=== PATIENT | male | born 1965 | race Caucasian/White ===

== ENCOUNTER 2018-10-24 08:00 | Outpatient (CLI) | payer OTHER ==
[2018-10-24 13:53] LABS: BASOPHILS % (AUTO) 0.8 %; EOSINOPHILS # (AUTO) 0.1 10^3/uL (0.0-0.7); EOSINOPHILS % (AUTO) 1.7 %; HGB - HEMOGLOBIN 14.7 g/dL (14.0-18.0); LYMPHOCYTES # (AUTO) 1.5 10^3/uL (1.5-3.5); MEAN CORPUSCULAR HEMOGLOBIN 30.6 pg (27.0-31.0); MEAN CORPUSCULAR HGB CONC 34.1 g/dL (32.0-36.0); MEAN CORPUSCULAR VOLUME 89.8 fL (80.0-94.0); MEAN PLATELET VOLUME 7.7 fL (7.4-11.4); MONOCYTES # (AUTO) 0.4 10^3/uL (0.0-1.0); MONOCYTES % (AUTO) 7.5 %; NEUTROPHILS # (AUTO) 2.9 10^3/uL (1.5-6.6); PLT - PLATELET COUNT 269 10^3/uL (130-450); RED BLOOD COUNT 4.81 10^6/uL (4.70-6.10); RED CELL DISTRIBUTION WIDTH 12.6 % (12.0-15.0)
[2018-10-24 14:05] LABS: ALBUMIN 4.1 g/dL (3.2-5.5); ALBUMIN/GLOBULIN RATIO 1.6 (1.0-2.2); ALKALINE PHOSPHATASE 72 IU/L (42-121); ALT ALANINE AMINOTRANSFERASE 20 IU/L (10-60); AST ASPARTATE AMINOTRANSFERASE 20 IU/L (10-42); BILIRUBIN,TOTAL 0.7 mg/dL (0.2-1.0); BUN - BLOOD UREA NITROGEN 17 mg/dL (6-20); CALCIUM 9.2 mg/dL (8.5-10.3); CARBON DIOXIDE - CO2 29 mmol/L (21-32); CHLORIDE 104 mmol/L (101-111); CHOL/HDL RATIO 3.1 (<5.0); CHOLESTEROL 154 mg/dL; CREATININE 0.9 mg/dL (0.6-1.2); GFR - MDRD 88 (>89); GLUCOSE 85 mg/dL (70-100); HDL CHOLESTEROL 50 mg/dL; LDL CHOLESTEROL,CALCULATED 96 mg/dL; LDL/HDL RATIO 1.9 (<3.6); SODIUM 139 mmol/L (135-145); TOTAL PROTEIN 6.7 g/dL (6.7-8.2); VLDL CHOLESTEROL 8 mg/dL
== END 2018-10-24 23:59 | disposition home or self-care (01) ==
LOC: LAB.WCP 08:00
PROVIDERS: ATTEND Nurse Practitioner
DX: Z00.00 Encounter for general adult medical examination without abnormal findings (principal); Z13.29 Encounter for screening for other suspected endocrine disorder; E78.5 Hyperlipidemia, unspecified
CPT/HCPCS: 36415; 80053; 80061; 83721; 84443; 85025

== ENCOUNTER 2019-01-20 15:00 | Outpatient (CLI) | payer OTHER ==
--- NOTE | 2019-01-21 09:34 | Ultrasound Report ---
Reason: TESTICULAR MASS,LEFT Procedure Date: 01/20/2019 Accession Number: [id number] / [id number] Procedure: US - Testicle CPT Code: FULL RESULT: EXAM: SCROTAL ULTRASOUND EXAM DATE: 01/20/2019 03:46 PM. CLINICAL HISTORY: Testicular mass, left. COMPARISON: None. TECHNIQUE: Real-time scanning was performed with static images obtained. Color-flow images were utilized. FINDINGS: Right: Testis: 4.0 x 2.2 x 2.9 cm. Normal size and echotexture with the exception of a 1.6 mm single echogenic focus, possibly calcification along the lateral margin/surface. No mass or abnormal blood flow. Epididymis: 1.4 x 1.5 x 1.3 cm. Normal size and echotexture. No mass or abnormal blood flow. Hydrocele: None. Varicocele: Venous caliber of 2.1 mm without Valsalva and 2.3 mm with Valsalva. Left: Testis: 4.5 x 2.1 x 3.2 cm. Normal size and echotexture. No mass, calcification, or abnormal blood flow. Epididymis: 1.6 x 2.8 x 1.0 cm. Normal size and echotexture. No mass or abnormal blood flow. Hydrocele: Trace. Varicocele: Venous plexus dilates to 2.7 mm with Valsalva, 2.3 mm without. IMPRESSION: Borderline left varicocele. Trace left hydrocele. Single 1.6 mm focus of calcification along the lateral margin/surface of the right testicle, unclear significance. RADIA
== END 2019-01-20 15:01 | disposition home or self-care (01) ==
LOC: DI 15:00
PROVIDERS: ATTEND Nurse Practitioner
DX: I86.1 Scrotal varices (principal); N43.3 Hydrocele, unspecified
CPT/HCPCS: 76870

== ENCOUNTER 2019-07-31 16:27 | Outpatient (CLI) | payer OTHER ==
--- NOTE | 2019-08-04 02:24 | Ultrasound Report ---
Reason: VARICOCELE LT TESTIS, TESTICULAR MASS LT Procedure Date: 07/31/2019 Accession Number: [id number] / [id number] Procedure: US - Testicle CPT Code: Final Report FULL RESULT: EXAM: SCROTAL ULTRASOUND EXAM DATE: 07/31/2019 05:20 PM. CLINICAL HISTORY: VARICOCELE LT TESTIS, TESTICULAR MASS LT. COMPARISON: TESTICLE 01/20/2019 3:07 PM. TECHNIQUE: Real-time scanning was performed with static images obtained. Color-flow images were utilized. FINDINGS: Right: Testis: 4.2 x 2.2 x 2.7 cm. Normal size and echotexture. No mass, calcification, or abnormal blood flow. Epididymis: 1.6 x 1.2 x 1.9 cm. Normal size and echotexture. No mass or abnormal blood flow. Hydrocele: None. Varicocele: Yes. Left: Testis: 4.6 x 2.2 x 3.0 cm. Normal size and overall echotexture. Small cyst measuring 2 x 2 x 2 mm. Otherwise no mass, calcification, or abnormal blood flow. Epididymis: 2.1 x 1.3 x 1.9 cm. Normal size and echotexture. No mass or abnormal blood flow. Hydrocele: None. Varicocele: Yes. IMPRESSION: 1. Bilateral varicoceles. 2. Small cyst in the left testis. RADIA
== END 2019-07-31 16:28 | disposition home or self-care (01) ==
LOC: DI 16:27
PROVIDERS: ATTEND Nurse Practitioner
DX: I86.1 Scrotal varices (principal); N44.2 Benign cyst of testis
CPT/HCPCS: 76870

== ENCOUNTER 2020-06-21 08:06 | Outpatient (CLI) | payer BC, OTHER ==
[2020-06-21 08:41] LABS: BASOPHILS # (AUTO) 0.1 10^3/uL (0.0-0.1); EOSINOPHILS # (AUTO) 0.1 10^3/uL (0.0-0.7); EOSINOPHILS % (AUTO) 2.2 %; HGB - HEMOGLOBIN 15.4 g/dL (14.0-18.0); LYMPHOCYTES # (AUTO) 1.6 10^3/uL (1.5-3.5); LYMPHOCYTES % (AUTO) 32.4 %; MEAN CORPUSCULAR HEMOGLOBIN 30.7 pg (27.0-31.0); MEAN CORPUSCULAR VOLUME 90.2 fL (80.0-94.0); MEAN PLATELET VOLUME 8.8 fL (7.4-11.4); MONOCYTES # (AUTO) 0.5 10^3/uL (0.0-1.0); MONOCYTES % (AUTO) 9.7 %; NEUTROPHILS # (AUTO) 2.7 10^3/uL (1.5-6.6); NEUTROPHILS % (AUTO) 54.5 %; PLT - PLATELET COUNT 258 10^3/uL (130-450); RED BLOOD COUNT 5.02 10^6/uL (4.70-6.10); RED CELL DISTRIBUTION WIDTH 11.7 % (12.0-15.0)
[2020-06-21 08:55] LABS: ALBUMIN 3.9 g/dL (3.2-5.5); ALBUMIN/GLOBULIN RATIO 1.4 (1.0-2.2); ALKALINE PHOSPHATASE 79 IU/L (42-121); ALT ALANINE AMINOTRANSFERASE 28 IU/L (10-60); AST ASPARTATE AMINOTRANSFERASE 22 IU/L (10-42); BILIRUBIN,TOTAL 0.6 mg/dL (0.2-1.0); BUN - BLOOD UREA NITROGEN 15 mg/dL (6-20); CARBON DIOXIDE - CO2 25 mmol/L (21-32); CHLORIDE 102 mmol/L (101-111); CHOL/HDL RATIO 3.4 (<5.0); CHOLESTEROL 164 mg/dL; CREATININE 0.8 mg/dL (0.6-1.2); GLUCOSE 85 mg/dL (70-100); HDL CHOLESTEROL 48 mg/dL; LDL CHOLESTEROL,CALCULATED 103 mg/dL; LDL/HDL RATIO 2.1 (<3.6); SODIUM 136 mmol/L (135-145); TOTAL PROTEIN 6.7 g/dL (6.7-8.2); VLDL CHOLESTEROL 13 mg/dL
== END 2020-06-21 08:07 | disposition home or self-care (01) ==
LOC: LAB 08:06
PROVIDERS: ATTEND Nurse Practitioner
DX: I10 Essential (primary) hypertension (principal); E78.9 Disorder of lipoprotein metabolism, unspecified; Z13.29 Encounter for screening for other suspected endocrine disorder
CPT/HCPCS: 36415; 80053; 80061; 83721; 84153; 84443; 85025

== ENCOUNTER 2020-08-16 15:21 | Outpatient (CLI) | payer BC, OTHER ==
--- NOTE | 2020-08-16 16:43 | Ultrasound Report ---
PROCEDURE: Testicle INDICATIONS: LT TESTICULAR MASS TECHNIQUE: Real-time scanning was performed of the scrotum and testicles, with image documentation. Color and p ulse Doppler interrogation was performed of both testicles. COMPARISON: None. FINDINGS: Right: Testicle is normal in size at 4.5 x 2.2 x 2.8 cm, and homogenous in echotexture except for a nonspecific echogenic focus probably calcification. Epididymis is normal in overall size and morphol ogy. No hydrocele. There is a right varicocele. Overlying scrotal skin is normal in thickness. Left: Testicle is normal in size at 4.6 x 2.3 x 3.0 cm, with a small cyst or spermatocele measuring 2 x 1 x 2 mm. Nonspecific echogenic focus, possibly extra testicular calcification which measures 5 x 2 x 4 mm. Epididymis is normal in overall size and morphology. Small hydrocele. No varicocele. Overlying scrota l skin is normal in thickness. Doppler: Color and pulse Doppler demonstrate normal and symmetric arterial flow in both testicles. IMPRESSION: Small left hydrocele. Right varicocele Nonspecific small cyst versus spermatocele involving the left testicle, too small to characterize. If clinically warranted, continued ultrasound follow-up could be considered. Reviewed by: Benjamin Kay MD on 08/16/2020 4:42 PM PST Approved by: Benjamin Kay MD on 08/16/2020 4:42 PM PST Station ID: [id number]
== END 2020-08-16 15:22 | disposition home or self-care (01) ==
LOC: DI 15:21
PROVIDERS: ATTEND Nurse Practitioner
DX: N43.3 Hydrocele, unspecified (principal); N50.89 Other specified disorders of the male genital organs

== ENCOUNTER 2021-03-09 15:42 | Outpatient (CLI) | payer BC, OTHER ==
--- NOTE | 2021-03-09 16:10 | XRAY Report ---
PROCEDURE: Shoulder 3 View RT INDICATIONS: IMPINGEMENT SYNDROME OF R SHOULDER TECHNIQUE: 3 views of the shoulder were acquired. COMPARISON: None. FINDINGS: Bones: No fractures or dislocations. No suspicious bony lesions. Visualized ribs appear intact. Soft tissues: No suspicious soft tissue calcifications. IMPRESSION: Mild degenerative AC joint osteoarthritis, no trauma found. Reviewed by: Tien Armstrong MD on 03/09/2021 4:08 PM PDT Approved by: Tien Armstrong MD on 03/09/2021 4:08 PM PDT Station ID: [id number]
== END 2021-03-09 15:43 | disposition home or self-care (01) ==
LOC: DI.N 15:42
PROVIDERS: ATTEND Internal Medicine
DX: M19.011 Primary osteoarthritis, right shoulder (principal)

== ENCOUNTER 2021-07-19 08:00 | Outpatient (CLI) | payer BC, OTHER ==
[2021-07-19 12:00] LABS: BASOPHILS # (AUTO) 0.1 10^3/uL (0.0-0.1); BASOPHILS % (AUTO) 0.9 %; EOSINOPHILS # (AUTO) 0.2 10^3/uL (0.0-0.7); HCT - HEMATOCRIT 47.5 % (42.0-52.0); HGB - HEMOGLOBIN 15.6 g/dL (14.0-18.0); LYMPHOCYTES # (AUTO) 1.7 10^3/uL (1.5-3.5); MEAN CORPUSCULAR HEMOGLOBIN 29.9 pg (27.0-31.0); MEAN CORPUSCULAR HGB CONC 32.8 g/dL (32.0-36.0); MEAN PLATELET VOLUME 9.1 fL (7.4-11.4); MONOCYTES # (AUTO) 0.4 10^3/uL (0.0-1.0); MONOCYTES % (AUTO) 7.8 %; NEUTROPHILS # (AUTO) 3.2 10^3/uL (1.5-6.6); NEUTROPHILS % (AUTO) 56.9 %; PLT - PLATELET COUNT 273 10^3/uL (130-450); RED BLOOD COUNT 5.22 10^6/uL (4.70-6.10); WHITE BLOOD COUNT 5.6 x10^3/uL (4.8-10.8)
[2021-07-19 12:15] LABS: ALBUMIN 4.1 g/dL (3.2-5.5); ALBUMIN/GLOBULIN RATIO 1.4 (1.0-2.2); ALKALINE PHOSPHATASE 75 IU/L (42-121); ALT ALANINE AMINOTRANSFERASE 40 IU/L (10-60); AST ASPARTATE AMINOTRANSFERASE 28 IU/L (10-42); BILIRUBIN,TOTAL 1.2 mg/dL (0.2-1.0); BUN - BLOOD UREA NITROGEN 15 mg/dL (6-20); CALCIUM 9.4 mg/dL (8.5-10.3); CARBON DIOXIDE - CO2 30 mmol/L (21-32); CHLORIDE 102 mmol/L (101-111); CHOL/HDL RATIO 3.8 (<5.0); CHOLESTEROL 181 mg/dL; CREATININE 0.9 mg/dL (0.6-1.2); GFR - MDRD 88 (>89); GLUCOSE 85 mg/dL (70-100); HDL CHOLESTEROL 48 mg/dL; LDL CHOLESTEROL,CALCULATED 119 mg/dL; LDL/HDL RATIO 2.5 (<3.6); POTASSIUM 4.8 mmol/L (3.5-5.0); SODIUM 140 mmol/L (135-145); TRIGLYCERIDES 72 mg/dL; VLDL CHOLESTEROL 14 mg/dL
[2021-07-19 12:26] LABS: THYROID STIMULATING HORMONE 2.98 uIU/mL (0.34-5.60)
== END 2021-07-19 23:59 ==
LOC: LAB.WCP 08:00
PROVIDERS: ATTEND Internal Medicine
DX: I10 Essential (primary) hypertension (principal); E78.5 Hyperlipidemia, unspecified; Z12.5 Encounter for screening for malignant neoplasm of prostate
CPT/HCPCS: 36415; 80053; 80061; 83721; 84153; 84443; 85025

== ENCOUNTER 2021-07-26 13:27 | Outpatient (CLI) | payer BC, OTHER | END 2021-07-26 13:28 | disposition home or self-care (01) | LOC: RT 13:27 | PROVIDERS: ATTEND Internal Medicine | DX: J45.909 Unspecified asthma, uncomplicated (principal); R05.9 Cough, unspecified | CPT/HCPCS: 94010; 94729 ==

== ENCOUNTER 2021-08-06 08:23 | Outpatient (CLI) | payer BC, OTHER ==
--- NOTE | 2021-08-06 13:57 | Ultrasound Report ---
PROCEDURE: Abdomen Complete INDICATIONS: EPIGASTRIC DISCOMFORT TECHNIQUE: Real-time scanning was performed of the abdominal and retroperitoneal organs, with image documentatio n. COMPARISON: None. FINDINGS: Liver: Liver is normal in size and homogeneous in echotexture. Gallbladder: No stones. No wall thickening or pericholecystic fluid. Biliary ducts: Intrahepatic bile ducts are non-dilated. Extrahepatic bile duct caliber measures 2 m m. Normal is 6-7 mm or less in diameter, or 10 mm or less post-cholecystectomy. Pancreas: The pancreas is not well visualized due to overlying bowel gas. Spleen: Spleen is normal i n size and homogeneous in echotexture. Kidneys: Kidneys are normal in size and echotexture. Right kidney measures 11.1 cm long; left kidne y measures 12.0 cm long. No hydronephrosis or nephrolithiasis. No solid masses. The right midpole cyst measures 6.0 x 5.8 x 5.5 cm Aorta: Visualized aorta is normal in caliber at less than 3 cm. Iliacs: Proximal common iliac arteries are normal in caliber at less than 2.5 cm. IVC: Intrahepatic inferior vena cava is patent. Miscellaneous: No free abdominal fluid. IMPRESSION: 1. No gallstones. No evidence of cholecystitis. 2. Simple cyst of the right kidney. 3. No acute ultrasound abnormality of the abdomen. Reviewed by: Henry Ellis on 08/06/2021 12:[address] [facility] Approved by: Henry Ellis on 08/06/2021 12:[address] Station ID: [id number]
== END 2021-08-06 08:24 | disposition home or self-care (01) ==
LOC: DI 08:23
PROVIDERS: ATTEND Internal Medicine
DX: R10.13 Epigastric pain (principal); N28.1 Cyst of kidney, acquired

== ENCOUNTER 2022-07-03 08:45 | Outpatient (CLI) | payer BC, OTHER ==
[2022-07-03 12:23] LABS: BASOPHILS % (AUTO) 0.7 %; EOSINOPHILS # (AUTO) 0.1 10^3/uL (0.0-0.7); EOSINOPHILS % (AUTO) 1.3 %; HCT - HEMATOCRIT 47.4 % (42.0-52.0); HGB - HEMOGLOBIN 15.6 g/dL (14.0-18.0); LYMPHOCYTES # (AUTO) 1.8 10^3/uL (1.5-3.5); MEAN CORPUSCULAR HGB CONC 32.9 g/dL (32.0-36.0); MEAN CORPUSCULAR VOLUME 91.2 fL (80.0-94.0); MEAN PLATELET VOLUME 9.5 fL (7.4-11.4); MONOCYTES # (AUTO) 0.4 10^3/uL (0.0-1.0); MONOCYTES % (AUTO) 8.1 %; NEUTROPHILS # (AUTO) 3.1 10^3/uL (1.5-6.6); NEUTROPHILS % (AUTO) 56.7 %; PLT - PLATELET COUNT 288 10^3/uL (130-450); RED CELL DISTRIBUTION WIDTH 11.9 % (12.0-15.0); WHITE BLOOD COUNT 5.5 x10^3/uL (4.8-10.8)
[2022-07-03 12:51] LABS: ALBUMIN 4.3 g/dL (3.2-5.5); ALBUMIN/GLOBULIN RATIO 1.5 (1.0-2.2); ALKALINE PHOSPHATASE 86 IU/L (42-121); ALT ALANINE AMINOTRANSFERASE 30 IU/L (10-60); AST ASPARTATE AMINOTRANSFERASE 24 IU/L (10-42); BUN - BLOOD UREA NITROGEN 13 mg/dL (6-20); CALCIUM 9.3 mg/dL (8.5-10.3); CARBON DIOXIDE - CO2 31 mmol/L (21-32); CHLORIDE 103 mmol/L (101-111); CHOL/HDL RATIO 3.3 (<5.0); CHOLESTEROL 183 mg/dL; CREATININE 0.8 mg/dL (0.6-1.2); GFR - MDRD 100 (>89); GLUCOSE 85 mg/dL (70-100); HDL CHOLESTEROL 55 mg/dL; LDL CHOLESTEROL,CALCULATED 114 mg/dL; LDL/HDL RATIO 2.1 (<3.6); POTASSIUM 4.6 mmol/L (3.5-5.0); SODIUM 139 mmol/L (135-145); TOTAL PROTEIN 7.2 g/dL (6.7-8.2); TRIGLYCERIDES 70 mg/dL; VLDL CHOLESTEROL 14 mg/dL
== END 2022-07-03 08:46 | disposition home or self-care (01) ==
LOC: LAB.N 08:45
PROVIDERS: ATTEND Internal Medicine
DX: I10 Essential (primary) hypertension (principal); E78.5 Hyperlipidemia, unspecified; Z12.5 Encounter for screening for malignant neoplasm of prostate
CPT/HCPCS: 36415; 80053; 80061; 83721; 84153; 85025